=== PATIENT | female | born 1955 | race Caucasian/White ===

== ENCOUNTER 2017-01-17 00:13 | Emergency (ER) | payer BC ==
[~2017-01-17 00:13] MED LIST: ALPRAZOLAM0.5 MG PO; AMLODIPINE BESYL5 MG PO; ASPIRIN EC81 MG PO; IMITREX25 MG PO; K-DUR TAB 20 M20 MEQ PO; LEVOTHYROXINE200 MC1 PO; LEVOTHYROXINE25 MCG PO; LORCET PLUS 7.1 EACH PO; METOCLOPRAMIDE H5 MG PO; MORPHINE SULFAT30 M6 PO; OXYCODONE HCL5 MG PO; OXYCONTIN 40 MG40 MG PO; PERCOCET 5-3251 EACH PO; SENNA S TABLET1 EACH PO; SYNTHROID175 MCG PO; TOPAMAX200 MG PO; VITAMIN D250000 UNIT PO; ZOFRAN ODT 4 MG4 MG PO
[2017-01-17 03:21] LABS: HEMOGLOBIN 11.4 gm/dl (12.3-15.3); RED BLOOD COUNT 3.56 M/UL (4.00-5.10); WHITE BLOOD COUNT 4.1 K/UL (4.5-11.0)
[2017-01-17 03:28] LABS: BUN/CREATININE RATIO 16 (0-10)
== END 2017-01-17 05:15 | disposition home or self-care (01) ==
LOC: ER1 00:13
PROVIDERS: Family Medicine
DX: C25.9 Malignant neoplasm of pancreas, unspecified (principal); G89.3 Neoplasm related pain (acute) (chronic); R10.13 Epigastric pain; C78.7 Secondary malignant neoplasm of liver and intrahepatic bile duct; Z88.2 Allergy status to sulfonamides; Z79.82 Long term (current) use of aspirin; Z79.899 Other long term (current) drug therapy
CPT/HCPCS: 36415; 80053; 81001; 83690; 85025; 96361; 96374; 96375; 96376; 99284

== ENCOUNTER 2017-02-12 23:53 | Emergency (ER) | payer BC ==
[2017-02-13 01:05] LABS: HEMOGLOBIN 13.4 gm/dl (12.3-15.3); WHITE BLOOD COUNT 5.3 K/UL (4.5-11.0)
[2017-02-13 01:29] LABS: BUN/CREATININE RATIO 23 (0-10)
== END 2017-02-13 04:51 | disposition home or self-care (01) ==
LOC: ER1 23:53
PROVIDERS: Physician Assistant
DX: G89.3 Neoplasm related pain (acute) (chronic) (principal); R10.11 Right upper quadrant pain; R10.12 Left upper quadrant pain; C25.9 Malignant neoplasm of pancreas, unspecified; C78.7 Secondary malignant neoplasm of liver and intrahepatic bile duct; I10 Essential (primary) hypertension; Z79.899 Other long term (current) drug therapy
CPT/HCPCS: 36415; 80053; 81001; 82150; 82550; 82553; 83605; 83690; 83874; 84484; 85025; 87040; 87086; 93005; 96361; 96374; 96375; 96376; 99284; J2405

== ENCOUNTER → 2017-02-19 | Outpatient (CLI) | payer BC | LOC: CT 09:06 | DX: C25.0 Malignant neoplasm of head of pancreas (principal); C77.2 Secondary and unspecified malignant neoplasm of intra-abdominal lymph nodes; C78.7 Secondary malignant neoplasm of liver and intrahepatic bile duct; R59.0 Localized enlarged lymph nodes; I81 Portal vein thrombosis; K82.8 Other specified diseases of gallbladder; K83.8 Other specified diseases of biliary tract; R91.1 Solitary pulmonary nodule | CPT/HCPCS: J7050; Q9962 ==